=== PATIENT | female | born 1960 | race African-American/Black ===

== ENCOUNTER 2016-10-12 22:12 | Emergency (ER) | payer SELFPAY ==
[~2016-10-12] VITALS: Ht 167.6 cm; Wt 77.1 kg
[~2016-10-12 22:12] MED LIST: UNOBMED
--- NOTE | 2016-10-12 22:23 | Emergency Room Report ---
History of Present Illness General Chief Complaint: Pain Source: Patient Present Illness HPI This is a 56-year-old female with history hypertension. She presents with chief complaint of bilateral feet pain. She is walk on the street and called 911. That she stepped on glass earlier today. Also said that she was kicked out of her prison. Patient denies any alcohol drugs. Denies any fever chills denies any nausea vomiting. Nothing made it better. Walking made it worse. No other injury. Not suicidal or homicidal. Allergies: Coded Allergies: UNABLE TO ASSESS (Unverified , 10/12/16) Patient History Past Medical History: see triage record, old chart reviewed, HTN, psych hx Past Surgical History: none Pertinent Family History: none Social History: Reports: smoking, Denies: alcohol use Now: No Immunizations: other Reviewed Nursing Documentation: PMH: Agreed, PSxH: Agreed Review of Systems Eye: Denies: blurred vision, eye pain ENT: Denies: ear pain, nose congestion, throat swelling Respiratory: Denies: cough, shortness of breath Cardiovascular: Denies: chest pain, palpitations Gastrointestinal: Denies: abdominal pain, diarrhea, nausea, vomiting Musculoskeletal: Denies: back pain, joint pain Skin: Denies: rash Neurological: Denies: headache, numbness Endocrine: Denies: increased thirst, increased urine Hematologic/Lymphatic: Denies: easy bruising All Other Systems: negative except mentioned in HPI Physical Exam Vital Signs Date Time Temp Pulse Resp B/P Pulse Ox O2 Delivery O2 Flow Rate FiO2 10/12/16 22:04 97.0 105 16 141/103 99 Room Air vitals with hypertension Sp02 EP Interpretation: reviewed, normal General Appearance: well appearing, no apparent distress, alert Head: normocephalic, atraumatic Eyes: bilateral eye EOMI, bilateral eye PERRL ENT: hearing grossly normal, normal pharynx Neck: full range of motion, supple, no meningismus Respiratory: chest non-tender, lungs clear, normal breath sounds Cardiovascular #1: regular rate, rhythm, no murmur Gastrointestinal: normal bowel sounds, non tender, no mass, no organomegaly, no bruit, non-distended Musculoskeletal: back normal, gait/station normal, normal range of motion, other - No evidence of trauma to the feet Neurologic: alert, oriented x3 Psychiatric: mood/affect normal Skin: warm/dry Medical Decision Making Diagnostic Impression: Primary Impression: Pain in both feet ER Course Patient presents with bilateral feet pain. She claimed that she stepped on glass but there is no gely of injury. She is walking in the ER without difficulty. She does not know the location where she resides. She gave me a general location of [place]. She was picked up on [address] only 5-6 blocks away. I tried Internet search to locate her boarding care. I myself called several places without any success. Registration personnel also called without any success. Patient eating and drinking without a problem. While we were in the process of looking for boarding care, patient got up and left without telling nursing staff. Last Vital Signs Date Time Temp Pulse Resp B/P Pulse Ox O2 Delivery O2 Flow Rate FiO2 10/12/16 22:04 97.0 105 16 141/103 99 Room Air Status: improved Disposition: ELOPED Condition: Stable WHIT GAO M.D. Oct 12, 2016 22:23
[2016-10-12 23:00] VITALS: BP 132/98
[2016-10-12 23:30] VITALS: BP 132/98
== END 2016-10-12 23:44 | disposition left against medical advice (07) ==
LOC: EDBD 22:12 → EMR 23:00
DX: M79.672 Pain in left foot (principal); M79.671 Pain in right foot; I10 Essential (primary) hypertension; F17.200 Nicotine dependence, unspecified, uncomplicated
CPT/HCPCS: 99281

== ENCOUNTER 2017-04-07 16:43 | Emergency (ER) | payer MEDICARE, MEDICAID ==
[~2017-04-07] VITALS: Ht 162.6 cm; Wt 73.0 kg
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
[2017-04-07 18:07] LABS: BASOPHILS % (AUTO) 1.2 % (0.0-2.0); EOSINOPHILS % (AUTO) 0.5 % (0.0-3.0); LYMPHOCYTES % (AUTO) 47.3 % (20.0-45.0); MEAN CORPUSCULAR HEMOGLOBIN 28.8 PG (27.0-31.0); MEAN CORPUSCULAR HGB CONC 32.9 G/DL (32.0-36.0); MEAN CORPUSCULAR VOLUME 88 FL (80-99); MEAN PLATELET VOLUME 8.1 FL (6.5-10.1); PLATELET COUNT 212 K/UL (150-450); RED BLOOD COUNT 4.26 M/UL (4.20-5.40); RED CELL DISTRIBUTION WIDTH 15.9 % (11.6-14.8); WHITE BLOOD COUNT 7.6 K/UL (4.8-10.8)
[2017-04-07] MEDS ORDERED: TYLENOL EXTRA500 MG ORAL (18:07)
[2017-04-07 18:22] VITALS: BP 139/87
[2017-04-07 18:25] VITALS: BP 145/87
[2017-04-07 18:48] LABS: ACETAMINOPHEN < 10 ug/mL (10-30); ALANINE AMINOTRANSFERASE 7 U/L (3-33); ALBUMIN/GLOBULIN RATIO 1.1 (1.0-2.7); ALCOHOL < 10 mg/dL; ANION GAP 8 (5-15); ASPARTATE AMINO TRANSFERASE 18 U/L (5-40); CALCIUM 10.1 mg/dL (8.6-10.2); CARBON DIOXIDE 34 mEQ/L (20-30); CHLORIDE 100 mEQ/L (98-107); GLOMERULAR FILTRATION RATE > 60 mL/min (>60); HEMOLYSIS 1; POTASSIUM 4.1 mEQ/L (3.4-4.9); SODIUM 142 mEQ/L (135-145); TOTAL PROTEIN 7.7 g/dL (6.6-8.7)
== END 2017-04-07 18:30 | disposition home or self-care (01) ==
LOC: EMR 18:29
DX: S00.93XA Contusion of unspecified part of head, initial encounter (principal); F91.9 Conduct disorder, unspecified; R62.50 Unspecified lack of expected normal physiological development in childhood; E11.9 Type 2 diabetes mellitus without complications; I10 Essential (primary) hypertension; E03.9 Hypothyroidism, unspecified; K21.9 Gastro-esophageal reflux disease without esophagitis; F25.9 Schizoaffective disorder, unspecified; Z88.1 Allergy status to other antibiotic agents; W22.09XA Striking against other stationary object, initial encounter; Y92.9 Unspecified place or not applicable
CPT/HCPCS: 80053; 85025; 99284; G0480; 80329

== ENCOUNTER 2017-04-14 14:38 | Emergency (ER) | payer MEDICARE, MEDICAID ==
[~2017-04-14] VITALS: Ht 162.6 cm; Wt 77.1 kg
[~2017-04-14 14:38] MED LIST changes: +TYLENOL EXTRA500 MG ORAL
[2017-04-14] MEDS ORDERED: Fluorescein Strips LEFT EYE ONE (14:45)
[2017-04-14] MEDS ORDERED: Tetracaine 0.5% Opth Soln RIGHT EYE ONE (14:45)
[2017-04-14 15:17] VITALS: BP 151/99
--- NOTE | 2017-04-14 15:29 | Emergency Room Report ---
History of Present Illness General Chief Complaint: Earache Source: Patient, Medical Record Present Illness HPI 56 YO Woman presents to the ED for FB sensation in the right ear. pt. was using q-tip earlier with no relief. denies fevers, chills, ear pain, ear swelling, or discharge. Pt. states it felt full as if something is in her right ear, and she had acute onset 10/10 in severity tenderness/pain when trying to clean her ear out with a q-tip. Pt. states the q-tip appeared to be intact. Denies worsening of symptoms other than new onset pain after attempting to clean her ear. Denies GROVER, tinnitus, or imbalance. pt. reports muffled hearing in the right ear. Denies CP, Palpitations, LOC, AMS, dizziness, Changes in Vision, Sensation, paresthesias, or a sudden severe headache. Pt. has an appt. in two days with her pcp per daughter who is the critical care unit manager. Allergies: Coded Allergies: LEVOFLOXACIN (Verified Allergy, Unknown, 04/07/17) Patient History Past Medical History: see triage record Past Surgical History: none Pertinent Family History: none Now: No Reviewed Nursing Documentation: PMH: Agreed, PSxH: Agreed Nursing Documentation-PMH Past Medical History: No History, Except For Hx Hypertension: Yes Hx Diabetes: Yes - Hypothyroid Hx Gastrointestinal Problems: Yes - Reflux Review of Systems All Other Systems: negative except mentioned in HPI Physical Exam Vital Signs Date Time Temp Pulse Resp B/P (MAP) Pulse Ox O2 Delivery O2 Flow Rate FiO2 04/14/17 15:17 99.7 90 16 151/99 95 Room Air Sp02 EP Interpretation: reviewed, normal General Appearance: no apparent distress, alert, GCS 15, non-toxic Head: normocephalic, atraumatic Eyes: bilateral eye normal inspection, bilateral eye PERRL ENT: hearing grossly normal, normal voice, other - Impacted cerumen in the right ear canal over the lower half of the canal, no evidence of d/c , tragal tenderness, or bleeding. TM not noted to be erythematous or perforated. the left canal is clean , free of debris, and WNL. Neck: full range of motion, supple/symm/no masses Respiratory: lungs clear, normal breath sounds, speaking full sentences Musculoskeletal: gait/station normal, normal range of motion Neurologic: alert, oriented x3, responsive, motor strength/tone normal, sensory intact, normal gait, speech normal Psychiatric: judgement/insight normal, memory normal, mood/affect normal Skin: normal color, no rash, warm/dry, well hydrated Lymphatic: no adenopathy, other Medical Decision Making PA Attestation Dr. Joiner is my supervising Physician whom patient management has been discussed with. Diagnostic Impression: Primary Impression: Impacted cerumen of right ear ER Course 56 YO Woman presents to the ED for FB sensation in the right ear. pt. was using q-tip earlier with no relief. denies fevers, chills, ear pain, ear swelling, or discharge. Pt. states it felt full as if something is in her right ear, and she had acute onset 10/10 in severity tenderness/pain when trying to clean her ear out with a q-tip. Pt. states the q-tip appeared to be intact. Denies worsening of symptoms other than new onset pain after attempting to clean her ear. Denies GROVER, tinnitus, or imbalance. pt. reports muffled hearing in the right ear. Denies CP, Palpitations, LOC, AMS, dizziness, Changes in Vision, Sensation, paresthesias, or a sudden severe headache. Pt. has an appt. in two days with her pcp per daughter who is the critical care unit manager. Ddx considered but are not limited to OM, OE, mastoiditis, TM perforation, FB, canal laceration/trauma Vital signs: are WNL, pt. is afebrile H&PE are most consistent with significantly Impacted cerumen of the right ear canal ORDERS: none required at this time, the diagnosis is clinical -OTOSCOPY: Impacted cerumen in the right ear canal over the lower half of the canal, no evidence of d/c , tragal tenderness, or bleeding. TM not noted to be erythematous or perforated. the left canal is clean , free of debris, and WNL. ED INTERVENTIONS: -Encouraged pt. and daughter to d/c q-tip use. - d/w pt. that ear curette or irrigation can be attempted to remove the impacted cerumen. pt. states that due to tenderness with q-tip she wants to wait. d/w pt. that will r/x softening drops, however may still require removal or irrigation, and to still attend her schedule doctors appt for follow up. -D/w pt. and daughter will rx otic drops called debrox to be applied into ear twice daily. DISCHARGE: At this time pt. is stable for d/c to home. With rx for Debrox. Will provide printed patient care instructions, and any necessary prescriptions. Care plan and follow up instructions have been discussed with the patient prior to discharge. Last Vital Signs Date Time Temp Pulse Resp B/P (MAP) Pulse Ox O2 Delivery O2 Flow Rate FiO2 04/14/17 15:17 99.7 90 16 151/99 95 Room Air Disposition: HOME, SELF-CARE Condition: Stable Scripts Carbamide Peroxide (DEBROX) 15 Ml Drops 10 DROP RIGHT EAR TWICE A DAY for 4 Days, #15 ML 0 Refills Prov: Luz Javier 04/14/17 Patient Instructions: Cerumen Impaction Additional Instructions: Take medications as directed. *Discontinue Q-Tip use Follow up with a Primary Care Provider in 3-5 days, even if your symptoms have resolved. --Please review list of primary care clinics, if you do not already have a primary care provider Return sooner to ED if new symptoms occur, or current symptoms become worse. - Please note that this Emergency Department Report was dictated using [employer] starch supervisor technology software, occasionally this can lead to erroneous entry secondary to interpretation by the dictation equipment. Luz Javier Apr 14, 2017 15:29
[2017-04-14] MEDS ORDERED: DEBROX15 M1 RIGHT EAR (15:30)
[2017-04-14 16:00] VITALS: BP 145/75
== END 2017-04-14 16:00 | disposition home or self-care (01) ==
LOC: EMR 15:34
DX: H61.21 Impacted cerumen, right ear (principal); Z88.1 Allergy status to other antibiotic agents; E03.9 Hypothyroidism, unspecified; I10 Essential (primary) hypertension; E11.9 Type 2 diabetes mellitus without complications; K21.9 Gastro-esophageal reflux disease without esophagitis
CPT/HCPCS: 99284

== ENCOUNTER 2017-04-23 13:49 | Emergency (ER) | payer MEDICARE, MEDICAID ==
[~2017-04-23] VITALS: Ht 162.6 cm; Wt 75.7 kg
[~2017-04-23 13:49] MED LIST changes: +DEBROX15 M1 RIGHT EAR
[2017-04-23 13:53] VITALS: BP 155/70
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
[2017-04-23] MEDS ORDERED: Morphine Sulfate 4mg/ml Inj IVP ONE (14:15)
[2017-04-23 14:44] LABS: BASOPHILS % (AUTO) 0.6 % (0.0-2.0); EOSINOPHILS % (AUTO) 0.3 % (0.0-3.0); LYMPHOCYTES % (AUTO) 30.6 % (20.0-45.0); MEAN CORPUSCULAR HEMOGLOBIN 27.2 PG (27.0-31.0); MEAN CORPUSCULAR HGB CONC 31.1 G/DL (32.0-36.0); MEAN CORPUSCULAR VOLUME 87 FL (80-99); MEAN PLATELET VOLUME 7.6 FL (6.5-10.1); MONOCYTES % (AUTO) 5.7 % (1.0-10.0); NEUTROPHILS % (AUTO) 62.8 % (45.0-75.0); PLATELET COUNT 197 K/UL (150-450); RED BLOOD COUNT 4.47 M/UL (4.20-5.40); RED CELL DISTRIBUTION WIDTH 15.3 % (11.6-14.8); WHITE BLOOD COUNT 7.4 K/UL (4.8-10.8)
[2017-04-23 14:53] LABS: INR 0.9 (0.9-1.1); PROTHROMBIN TIME 9.9 SEC (9.30-11.50)
[2017-04-23 14:57] LABS: ALANINE AMINOTRANSFERASE 5 U/L (3-33); ANION GAP 10 (5-15); ASPARTATE AMINO TRANSFERASE 12 U/L (5-40); CALCIUM 9.5 mg/dL (8.6-10.2); CARBON DIOXIDE 32 mEQ/L (20-30); CHLORIDE 96 mEQ/L (98-107); GLOMERULAR FILTRATION RATE > 60 mL/min (>60); HEMOLYSIS 0; LIPASE 34 U/L (< 60); POTASSIUM 4.5 mEQ/L (3.4-4.9); SODIUM 138 mEQ/L (135-145); TOTAL PROTEIN 7.7 g/dL (6.6-8.7)
--- NOTE | 2017-04-23 14:59 | Diagnostic Imaging Report ---
Indication: Right flank pain, dysuria Technique: Spiral acquisitions obtained through the abdomen and pelvis. No oral or IV contrast utilized, per urinary stone protocol. Multiplanar reconstructions were generated. Total dose length product 666 mGycm. CTDIvol(s) 13 mGy. Dose reduction achieved using automated exposure control Comparison: None Findings: Equivocal tiny stone or stones seen in the left renal cortex versus upper pole peripheral calyces. No other renal or ureteral calculi demonstrated. There is no hydronephrosis or hydroureter. Lack of IV contrast limits assessment of the renal parenchyma. No gross renal parenchymal mass or cyst. The bladder is equivocally mildly thickwalled. Lack of IV contrast limits assessment of the other solid organs. The liver, gallbladder, bile ducts, pancreas, spleen, adrenals are all grossly unremarkable. No retroperitoneal or mesenteric mass or adenopathy. No pelvic mass or adenopathy. There is mild rectal distention by feces. No evidence of diverticulosis or diverticulitis. The appendix is normal. There are a few somewhat dilated mid abdominal small bowel loops. However, there is no abrupt transition to normal caliber small bowel. There is diastases of the rectus abdominis tendon without evidence of aye herniation. No free or loculated intraperitoneal air or fluid. The distal esophagus, stomach, duodenum are unremarkable. There is a pericardial effusion which measures up to 9 mm thick. There is a small amount of pleural fluid on the right. Some atelectatic changes and/or scarring are seen at both lung bases. There are are old healed right rib fracture deformities noted. There are mild degenerative changes of the lumbar spine. Impression: Equivocal tiny left upper pole renal calyceal calculi versus parenchymal calcification No evidence of obstructive uropathy or other evidence of significant urinary stone disease Equivocal mild bladder wall thickening, if real could indicate cystitis. Correlate with clinical and laboratory findings Mild rectal distention by feces A few nonspecific borderline dilated small bowel loops. No definite evidence of obstructive pathology; suspect functional in nature Pericardial effusion Trace right pleural effusion Other findings as noted, including mild degenerative spondylosis, old healed right rib fracture deformities, bilateral basilar pulmonary atelectasis and/or scarring, diastases of the rectus abdominis tendon The CT scanner at [facility] is accredited by the [employer] and the scans are performed using protocols designed to limit radiation exposure to as low as reasonably achievable to attain images of sufficient resolution adequate for diagnostic evaluation.
[2017-04-23] MEDS ORDERED: CALCITRIOL0.25 MCG PO (15:38)
[2017-04-23] MEDS ORDERED: QUETIAPINE FUM200 MG ORAL (15:38)
[2017-04-23] MEDS ORDERED: TRIPLE ANTIBIO1 EAC1 TP (15:38)
[2017-04-23] MEDS ORDERED: COLACE250 MG ORAL (15:38)
[2017-04-23] MEDS ORDERED: QUETIAPINE FUM300 MG ORAL (15:38)
[2017-04-23] MEDS ORDERED: MELATONIN3 MG ORAL (15:38)
[2017-04-23] MEDS ORDERED: OXYBUTYNIN CHLOR5 M1 ORAL (15:38)
[2017-04-23] MEDS ORDERED: DIVALPROEX SOD500 MG PO (15:38)
[2017-04-23] MEDS ORDERED: LAXATIVE SUPPOS10 MG RC (15:38)
[2017-04-23] MEDS ORDERED: SYNTHROID175 MCG ORAL (15:38)
[2017-04-23] MEDS ORDERED: PHARBETOL325 MG PO (15:38)
[2017-04-23] MEDS ORDERED: FLEET ENEMA133 M1 RC (15:38)
[2017-04-23] MEDS ORDERED: [UNRECOGNIZED DRUG - OTHER] TP (15:38)
[2017-04-23] MEDS ORDERED: DIVALPROEX SOD250 MG PO (15:38)
[2017-04-23] MEDS ORDERED: LEXAPRO20 MG ORAL (15:38)
[2017-04-23] MEDS ORDERED: ZOCOR20 M1 ORAL (15:38)
[2017-04-23] MEDS ORDERED: LOSARTAN POTASS50 MG ORAL (15:38)
[2017-04-23] MEDS ORDERED: OYSTER SHELL C500 MG PO (15:38)
[2017-04-23] MEDS ORDERED: BISACODYL10 M1 RC (15:38)
[2017-04-23 15:43] VITALS: BP 144/92
[2017-04-23 17:08] LABS: APPEARANCE,URINE CLEAR; KETONES,URINE NEGATIVE (NEGATIVE); LEUKOCYTE ESTERASE ,URINE NEGATIVE (NEGATIVE); NITRITE,URINE NEGATIVE (NEGATIVE); PH,URINE 7 (4.5-8.0); PROTEIN,URINE NEGATIVE (NEGATIVE); UROBILINOGEN,URINE NORMAL MG/DL (0.0-1.0)
[2017-04-23 17:12] LABS: TROPONIN I < 0.30 ng/mL (<=0.30)
[2017-04-23] MEDS ORDERED: OMEPRAZOLE20 M2 ORAL ×2 (17:26→17:48)
[2017-04-23 17:39] VITALS: BP 144/93
[2017-04-23 17:54] VITALS: BP 144/93
--- NOTE | 2017-04-27 16:05 | Cardiology Report ---
APPROVED REPORT EKG Measurement Heart [id number] Normal sinus rhythm Left axis deviation Septal infarct, age undetermined Abnormal ECG
== END 2017-04-23 17:54 | disposition home or self-care (01) ==
LOC: EMR 14:10 → CANBEDREQ 17:30 → EMR 17:54
DX: F91.9 Conduct disorder, unspecified (principal); R62.50 Unspecified lack of expected normal physiological development in childhood; R10.9 Unspecified abdominal pain; R30.0 Dysuria; Z88.1 Allergy status to other antibiotic agents; I10 Essential (primary) hypertension; E11.9 Type 2 diabetes mellitus without complications; E03.9 Hypothyroidism, unspecified; K21.9 Gastro-esophageal reflux disease without esophagitis; Z86.59 Personal history of other mental and behavioral disorders
CPT/HCPCS: 36415; 74176; 80053; 81003; 83690; 84484; 85025; 85610; 85730; 93005; 93306; 96374; 96375; 99284; J2270; J2405

== ENCOUNTER 2017-12-24 16:30 | Emergency (ER) | payer MEDICARE, MEDICAID ==
[~2017-12-24] VITALS: Ht 154.9 cm; Wt 68.0 kg
[~2017-12-24 16:30] MED LIST changes: +BISACODYL10 M1 RC; +CALCITRIOL0.25 MCG PO; +COLACE250 MG ORAL; +DIVALPROEX SOD250 MG PO; +DIVALPROEX SOD500 MG PO; +FLEET ENEMA133 M1 RC; +LAXATIVE SUPPOS10 MG RC; +LEXAPRO20 MG ORAL; +LOSARTAN POTASS50 MG ORAL; +MELATONIN3 MG ORAL; +OMEPRAZOLE20 M2 ORAL; +OXYBUTYNIN CHLOR5 M1 ORAL; +OYSTER SHELL C500 MG PO; +PHARBETOL325 MG PO; +QUETIAPINE FUM200 MG ORAL; +QUETIAPINE FUM300 MG ORAL; +SYNTHROID175 MCG ORAL; +TRIPLE ANTIBIO1 EAC1 TP; +ZOCOR20 M1 ORAL; +[UNRECOGNIZED DRUG - OTHER] TP
[2017-12-24 17:00] VITALS: BP 168/90
--- NOTE | 2017-12-24 17:11 | Emergency Room Report ---
History of Present Illness General Chief Complaint: Multiple Trauma/Fall Source: Patient, Medical Record Present Illness HPI 57-year-old female patient presents to ER status post fall. Patient brought in by daytime worker at assisted healthcare facility the patient is living up. Reports that patient slipped and fell and hit the back of her head. Denies nausea or vomiting. Denies vision loss. Denies fainting. Complains of large bump on the back of her head, denies pain at this time. Patient has a history of mild intellectual disability, healthcare curatorial assistant reports she is at her baseline mentation. Patient able to ambulate independently without difficulty. Patient talking without difficulty. Allergies: Coded Allergies: LEVOFLOXACIN (Verified Allergy, Unknown, 04/07/17) Patient History Past Medical History: see triage record Immunizations: UTD Reviewed Nursing Documentation: PMH: Agreed; PSxH: Agreed Nursing Documentation-PMH Past Medical History: No History, Except For Hx Hypertension: Yes Hx Diabetes: Yes - Hypothyroid Hx Gastrointestinal Problems: Yes - Reflux Review of Systems All Other Systems: negative except mentioned in HPI Physical Exam Vital Signs Date Time Temp Pulse Resp B/P (MAP) Pulse Ox O2 Delivery O2 Flow Rate FiO2 12/24/17 16:45 98.7 82 18 168/90 95 Room Air 98.8 Sp02 EP Interpretation: reviewed, normal General Appearance: well appearing, no apparent distress, alert, GCS 15, non- toxic Head: normocephalic, atraumatic, other - 4cm hematoma on posterior scalp, no open wound, no erythema, no laceration, no ecchymosis; negative kaiser sign, negative raccoon eyes, negative skull depression ENT: hearing grossly normal, normal pharynx, no angioedema, normal voice, TMs + canals normal, uvula midline, moist mucus membranes, other - negative Hemotympanum Neck: full range of motion Respiratory: lungs clear, normal breath sounds, no rhonchi, no respiratory distress, no accessory muscle use, no wheezing, speaking full sentences Cardiovascular #1: regular rate, rhythm, no edema Musculoskeletal: back normal, digits/nails normal, gait/station normal, normal range of motion, non-tender Neurologic: alert, oriented x3, responsive, 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 Navarro is my supervising Physician whom patient management has been discussed with. Diagnostic Impression: Primary Impression: Head injury ER Course Pt presents to ED c/o bump on posterior scalp. DDX considered but are not limited to hematoma, abrasion, contusion, cellulitis , ICH, skull fracture. Ordered CT of head to rule out acute pathology. VITAL SIGNS are WNL, patient is afebrile Ordered CT head and Tylenol. ED INTERVENTIONS: Physical exam shows a 4 cm hematoma on posterior scalp, no laceration or open wound. Cranial nerves intact as tested, no raccoon eyes, no kaiser sign, no hemotympanum. Low suspicion for basilar skull fracture. CT head negative for acute disease. Head swelling consistent with hematoma, will provide compression dressing. Copy of results provided to patient healthcare curatorial assistant. Instructed to followup with PCP and discuss further treatment and referral to neuro as needed. Patient OK for discharge to home. Patient resting comfortably, in no acute distress, nontoxic appearing, walking around, talking without difficulty. DISCHARGE: Rx provided for Tylenol At this time pt is stable for d/c to home. Patient resting comfortably, in no acute distress, nontoxic appearing, talking without difficulty. Will provide with patient care instructions and any necessary prescriptions. Patient to take medication as instructed. Care plan and follow-up instructions provided. Patient questions asked and answered. Patient reports understanding and agreement to treatment plan. Patient instructed to follow-up with primary care provider in 1-3 days. ER precautions given. Patient instructed to return to ER immediately for any new or worsening of symptoms. - Please note that this Emergency Department Report was dictated using [employer] technology software, occasionally this can lead to erroneous entry secondary to interpretation by the dictation equipment. CT/MRI/US Diagnostic Results CT/MRI/US Diagnostic Results : Imaging Test Ordered: CT head Impression No intracranial hemorrhage or skull fracture. Scalp injury. Last Vital Signs Date Time Temp Pulse Resp B/P (MAP) Pulse Ox O2 Delivery O2 Flow Rate FiO2 12/24/17 17:00 98.8 18 168/90 95 Room Air 98.8 12/24/17 16:45 82 Disposition: HOME, SELF-CARE Condition: Stable Scripts Acetaminophen* (TYLENOL EXTRA STRENGTH*) 500 Mg Tablet 500 MG ORAL Q8H PRN for Prn Headache/Temp > 101, #30 TAB 0 Refills Prov: Kayleigh,Duane P.A. 12/24/17 Patient Instructions: Head Injury, Adult, [id number] Additional Instructions: Followup with primary care provider in 3 -5 days. Take medications as directed. Patient questions asked and answered. ER precautions given, patient instructed to return to ER immediately for any new or worsening of symptoms. Duane Victor December 24, 2017 17:11
[2017-12-24] MEDS ORDERED: Acetaminophen 500mg (ES) tab ORAL ONE (17:30)
[2017-12-24] MEDS ORDERED: TYLENOL EXTRA500 MG ORAL (18:36)
[2017-12-24 18:51] VITALS: BP 168/90
--- NOTE | 2017-12-25 08:40 | Diagnostic Imaging Report ---
Indication: Head pain Technique: Continuous helical CT scanning of the head was performed without intravenous contrast material. Axial and coronal 5 mm sections were generated. Radiation dose was minimized using automated exposure control Dose: Total Dose Length Product - DLP 1396.[address] Dose Index - CTDIvol(s) 70.38 mGy. Comparison: none Findings: The ventricular system is normal in size and configuration. There is no shift of midline structures. No abnormal extra-axial fluid collections are noted. There is no evidence of intracerebral bleeding. No other abnormal high or low density areas are noted within the brain. There is evidence of soft tissue contusion in the left high parietal scalp posteriorly, and questionably minimal soft tissue contusion in the right supraorbital frontal scalp. Normal rdz-white differentiation. Intact calvarium. Visualized orbits and sinuses are unremarkable. Impression: Evidence of scalp soft tissue injury Negative for acute intracranial bleed or mass effect This agrees with the preliminary interpretation provided overnight by [facility]. The CT scanner at [facility] is accredited by the [employer] and the scans are performed using protocols designed to limit radiation exposure to as low as reasonably achievable to attain images of sufficient resolution adequate for diagnostic evaluation. Noncontrast
== END 2017-12-24 18:51 | disposition home or self-care (01) ==
LOC: EMR 17:32
DX: S00.03XA Contusion of scalp, initial encounter (principal); W01.198A Fall on same level from slipping, tripping and stumbling with subsequent striking against other object, initial encounter; Y92.531 Health care provider office as the place of occurrence of the external cause; Y99.0 Civilian activity done for income or pay; Z88.1 Allergy status to other antibiotic agents; E11.9 Type 2 diabetes mellitus without complications; E03.9 Hypothyroidism, unspecified; K21.9 Gastro-esophageal reflux disease without esophagitis
CPT/HCPCS: 70450; 99284

== ENCOUNTER 2018-10-28 18:43 | Emergency (ER) | payer MEDICARE, MEDICAID ==
[~2018-10-28] VITALS: Ht 157.5 cm; Wt 73.5 kg
[2018-10-28] MEDS ORDERED: Lidocaine 1% MPF 10mg/ml 5ml INJ ONE (19:15)
[2018-10-28 19:31] VITALS: BP 135/89
[2018-10-28 19:33] LABS: BASOPHILS % (AUTO) 1.9 % (0.0-2.0); EOSINOPHILS % (AUTO) 0.4 % (0.0-3.0); HEMOGLOBIN 11.7 G/DL (12.0-16.0); LYMPHOCYTES % (AUTO) 41.8 % (20.0-45.0); MEAN CORPUSCULAR VOLUME 86 FL (80-99); MONOCYTES % (AUTO) 6.2 % (1.0-10.0); NEUTROPHILS % (AUTO) 49.7 % (45.0-75.0); PLATELET COUNT 166 K/UL (150-450); RED BLOOD COUNT 4.41 M/UL (4.20-5.40); RED CELL DISTRIBUTION WIDTH 14.9 % (11.6-14.8); WHITE BLOOD COUNT 7.6 K/UL (4.8-10.8)
--- NOTE | 2018-10-28 19:33 | NUR ---
ED Nurse Note: PER CAREGIVER PT WAS WALKING AND TRIPPED ON SPRINKLER. PT HIT UPPER RIGHT SIDE OF HEAD VISIBLE LACERATION WITH BLEEDING IS PRESENT. PT DENIES LOC. PT IS AOX2
--- NOTE | 2018-10-28 19:34 | NUR ---
ED Nurse Note: CAREGIVER AT [facility]
--- NOTE | 2018-10-28 19:40 | NUR ---
ED Nurse Note: ROZINA, XYLOCAINE AT BEDSIDE FOR ERMD, PT HEAD LAC HAS BEEN IRRIGATED. AWAITING FURTHER ORDERS FROM ERMD. PT VSS, PT ON ROOM AIR STATING AT 98%
[2018-10-28 19:45] LABS: ANION GAP 6 mmol/L (5-15); BLOOD UREA NITROGEN 28 mg/dL (7-18); CALCIUM 9.7 MG/DL (8.5-10.1); CARBON DIOXIDE 34 MMOL/L (21-32); CHLORIDE 102 MMOL/L (98-107); CREATININE 1.1 MG/DL (0.55-1.30); POTASSIUM 3.9 MMOL/L (3.5-5.1); SODIUM 142 MMOL/L (136-145)
[2018-10-28 19:49] LABS: ALANINE AMINOTRANSFERASE 18 U/L (12-78); ALBUMIN 3.6 G/DL (3.4-5.0); ALBUMIN/GLOBULIN RATIO 0.8 (1.0-2.7); ALKALINE PHOSPHATASE 101 U/L (46-116); ASPARTATE AMINO TRANSFERASE 23 U/L (15-37); BILIRUBIN,TOTAL 0.2 MG/DL (0.2-1.0)
--- NOTE | 2018-10-28 20:45 | Emergency Room Report ---
History of Present Illness General Chief Complaint: Head Injury Source: Patient Present Illness HPI This patient is accompanied by her caregiver. The patient was walking across grass and didn't see a raised sprinkler and tripped and fell hitting the back of her head. There was no loss of consciousness. She does have a scalp laceration. She denies neck pain or back pain. She denies chest pain or shortness of breath. Tetanus is up-to-date. She has no other complaints. Allergies: Coded Allergies: LEVOFLOXACIN (Verified Allergy, Unknown, 04/07/17) Patient History Past Medical History: see triage record, DM, HTN, GERD Social History: Denies: smoking, alcohol use, drug use Last Menstrual Period: na Immunizations: UTD Reviewed Nursing Documentation: PMH: Agreed; PSxH: Agreed Nursing Documentation-PMH Past Medical History: No History, Except For Hx Hypertension: Yes Hx Diabetes: Yes - Hypothyroid Hx Gastrointestinal Problems: Yes - Reflux Review of Systems All Other Systems: negative except mentioned in HPI Physical Exam Vital Signs Date Time Temp Pulse Resp B/P (MAP) Pulse Ox O2 Delivery O2 Flow Rate FiO2 10/28/18 18:47 98.4 103 20 135/89 98 Room Air Sp02 EP Interpretation: reviewed, normal General Appearance: no apparent distress, alert, GCS 15, non-toxic Head: normocephalic, other - R. occipital crescent shaped scalp laceration 4cm ENT: hearing grossly normal, normal pharynx, no angioedema, normal voice Neck: full range of motion, supple/symm/no masses Respiratory: chest non-tender, lungs clear, normal breath sounds, no respiratory distress, no retraction, no accessory muscle use, speaking full sentences Cardiovascular #1: regular rate, rhythm, no edema Gastrointestinal: normal bowel sounds, non tender, soft, non-distended, no guarding, no rebound Rectal: deferred Musculoskeletal: back normal, normal range of motion, non-tender Neurologic: alert, oriented x3, responsive, motor strength/tone normal, sensory intact, speech normal Psychiatric: memory normal, mood/affect normal, no suicidal/homicidal ideation Skin: normal color, no rash, warm/dry, well hydrated Medical Decision Making Diagnostic Impression: Primary Impression: Closed head injury Additional Impression: Scalp laceration ER Course This patient presents status post mechanical fall. She did have a large scalp laceration. This was repaired with annette. See my procedure note. Patient underwent CT of the head and there is no evidence of acute intracranial bleed. The patient is not on blood thinners and overall has a normal neurologic exam. Laboratory workup to include CBC, CMP are unremarkable. At this time, I did not identify an emergency medical condition. The patient is given close return precautions and follow-up instructions. Laboratory Tests Test 10/28/18 19:13 White Blood Count 7.6 K/UL (4.8-10.8) Red Blood Count 4.41 M/UL (4.20-5.40) Hemoglobin 11.7 G/DL (12.0-16.0) L Hematocrit 38.0 % (37.0-47.0) Mean Corpuscular Volume 86 FL (80-99) Mean Corpuscular Hemoglobin 26.7 PG (27.0-31.0) L Mean Corpuscular Hemoglobin Concent 30.9 G/DL (32.0-36.0) L Red Cell Distribution Width 14.9 % (11.6-14.8) H Platelet Count 166 K/UL (150-450) Mean Platelet Volume 6.2 FL (6.5-10.1) L Neutrophils (%) (Auto) 49.7 % (45.0-75.0) Lymphocytes (%) (Auto) 41.8 % (20.0-45.0) Monocytes (%) (Auto) 6.2 % (1.0-10.0) Eosinophils (%) (Auto) 0.4 % (0.0-3.0) Basophils (%) (Auto) 1.9 % (0.0-2.0) Prothrombin Time 10.1 SEC (9.30-11.50) Prothrombin Time INR 1.0 (0.9-1.1) PTT 26 SEC (23-33) Sodium Level 142 MMOL/L (136-145) Potassium Level 3.9 MMOL/L (3.5-5.1) Chloride Level 102 MMOL/L (98-107) Carbon Dioxide Level 34 MMOL/L (21-32) H Anion Gap 6 mmol/L (5-15) Blood Urea Nitrogen 28 mg/dL (7-18) H Creatinine 1.1 MG/DL (0.55-1.30) Estimate Glomerular Filtration Rate > 60 mL/min (>60) Glucose Level 97 MG/DL (74-106) Calcium Level 9.7 MG/DL (8.5-10.1) Total Bilirubin 0.2 MG/DL (0.2-1.0) Aspartate Amino Transferase (AST) 23 U/L (15-37) Alanine Aminotransferase (ALT) 18 U/L (12-78) Alkaline Phosphatase 101 U/L (46-116) Total Protein 8.1 G/DL (6.4-8.2) Albumin 3.6 G/DL (3.4-5.0) Globulin 4.5 g/dL Albumin/Globulin Ratio 0.8 (1.0-2.7) L CT/MRI/US Diagnostic Results CT/MRI/US Diagnostic Results : Imaging Test Ordered: CT head Impression No acute findings. Specifically no intracranial bleed, mass effect or edema. See official report. Last Vital Signs Date Time Temp Pulse Resp B/P (MAP) Pulse Ox O2 Delivery O2 Flow Rate FiO2 10/28/18 19:31 98.4 98 20 135/89 98 Room Air Status: improved Disposition: HOME, SELF-CARE Condition: Improved Debra Oconnell DO Oct 28, 2018 20:45
[2018-10-28 20:57] VITALS: BP 135/89
--- NOTE | 2018-10-28 20:57 | NUR ---
ER DISCHARGE NOTE: Patient is cleared to be discharged per ERMD, pt is aox4, on room air, with stable vital signs. pt was given dc and prescription instructions, pt was able to verbalize understanding, pt id band removed. pt is able to ambulate with steady gait. pt took all belongings. left wioth cork molder
--- NOTE | 2018-10-29 11:57 | Diagnostic Imaging Report ---
Indication: Headache. Head trauma Technique: Contiguous 5 mm thick transaxial imaging of the head obtained in a Siemens Sensation [address] scanner. Soft tissue and bone windows generated. Automatic Exposure Control was utilized. Total Dose length Product (DLP): 1386.[address] Dose Index Volume (CTDIvol): 70.38 mGy Comparison: 12/24/2017 Findings: There is mild prominence of the ventricles, basal cisterns, and cerebral sulci consistent with atrophy. Mild, nonspecific, white matter hypoattenuation is noted throughout the brain consistent with chronic small vessel disease. There is no midline shift, edema, acute hemorrhage, mass effect, or abnormal extra-axial fluid collections. Bones and extra osseous soft tissues are unremarkable. Impression: No acute intracranial bleed, mass effect or edema. Mild atrophy of the brain. Nonspecific white matter hypoattenuation probably due to chronic small vessel disease. [facility] has communicated the preliminary results to the Emergency Department. Their findings are largely concordant with this report. The CT scanner at [facility] is accredited by the [employer] and the scans are performed using dose optimization techniques as appropriate to a performed exam including Automatic Exposure control.
== END 2018-10-28 20:57 | disposition home or self-care (01) ==
LOC: EMR 19:29
DX: S01.01XA Laceration without foreign body of scalp, initial encounter (principal); S09.90XA Unspecified injury of head, initial encounter; W01.0XXA Fall on same level from slipping, tripping and stumbling without subsequent striking against object, initial encounter; Y92.9 Unspecified place or not applicable; Z88.8 Allergy status to other drugs, medicaments and biological substances; E11.9 Type 2 diabetes mellitus without complications; I10 Essential (primary) hypertension; K21.9 Gastro-esophageal reflux disease without esophagitis
CPT/HCPCS: 36415; 70450; 80053; 85025; 85610; 85730; 99284